=== PATIENT | male | born 1965 | race Caucasian/White ===

== ENCOUNTER 2018-04-25 01:16 | Inpatient (IN) | payer OTHER ==
[~2018-04-25] VITALS: Ht 175.3 cm; Wt 99.0 kg
--- NOTE | ~2018-04-25 | HC ---
[facility] [place] [address] CONSULTATION Name: VIRGINIE SALAS Room #: 218-P [facility] IN M.R.#: [id number] Admission: 04/25/18 Attend Phys: Juan Fernandez MD Discharge: Date of : 65 Report #: [id number] THIS REPORT FOR: //name// CC: FAM unknown Juan Fernandez DATE OF SERVICE: 04/25/2018 NEPHROLOGY CONSULTATION REASON FOR CONSULTATION: Elevated creatinine. 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 The patient developed shortness of air, with some wheezing, presented to [facility] and was found to have a creatinine of 3.8, BUN 53 and transferred here. As far as we know, the patient is unaware of any prior renal issues. PAST MEDICAL HISTORY: He had one bout of a single kidney stone, which was retrieved by basket also about 20-25 years ago. He has also had prior history of pancreatitis also 20-25 years ago. FAMILY HISTORY: He is adopted. SOCIAL HISTORY: He does use tobacco in an oral form. No smoking. Occasional alcoholic drink, may be once a week. REVIEW OF SYSTEMS: GENERAL: Aside from his shortness of breath this morning, he has been feeling reasonably well. He has noted some swelling in his legs. EYES: His vision has been a little compromised. He has had the retinopathy and has been getting treatment for that for some time. ENT: Hearing okay, swallows okay. No mouth sores. ENDOCRINE: Positive for the diabetes. RESPIRATORY: Brief episode this morning as mentioned, otherwise no problems. CARDIAC: No chest pain, angina, palpitations or arrhythmias. GASTROINTESTINAL: Occasional problems with both constipation and diarrhea. GENITOURINARY: Good urinary stream without dysuria. NEUROLOGIC: He has got a little bit of numbness in his feet. No seizure or stroke. MUSCULOSKELETAL: No arthritis. Does not use nonsteroidals except for very rare occasions. [facility] [address] [place] [address] CONSULTATION Name: VIRGINIE SALAS Room #: 218-P [facility] IN M.R.#: [id number] Admission: 04/25/18 Attend Phys: Juan Fernandez MD Discharge: Date of : 65 Report #: [id number] HOME MEDICATIONS: Include atorvastatin 40 mg daily, iron, glucosamine, Lantus insulin, metformin 1000 mg daily and combination olmesartan and hydrochlorothiazide 40/25 once daily. PHYSICAL EXAMINATION: GENERAL: This is a reasonably well-appearing, lucid, calm gentleman, in no distress. SKIN: Unremarkable. SKELETAL: Well-developed, well-nourished, missing the 2 toes on his right foot. HEENT: Extraocular movements are full. Vision intact. No scleral icterus. Hearing intact. Mucous membranes are moist. Tongue and buccal mucosa benign. NECK: Supple, no carotid bruits are heard. There is no lymphadenopathy. CHEST: Clear to auscultation. HEART: Regular. ABDOMEN: Soft and nontender. EXTREMITIES: Show 1+ ankle edema. NEUROLOGIC: Grossly intact. LABORATORY DATA: No urinalysis. No albumin. Sodium 142, potassium 4, chloride 110, bicarbonate 22, creatinine 3.8, BUN 53, calcium 8.2. No phosphorus. CPK 658. Troponin 0.1. ASSESSMENT AND PLAN: 1. Renal insufficiency. The patient has renal insufficiency. He also has a history of longstanding diabetes, hypertension with triopathy. I suspect for the most part this is all chronic, although I am surprised that his primary physician has not talked to him about renal disease in the past. A renal sonogram is also completely unremarkable. We will get urine protein studies, paraprotein studies, urinalysis to see if those show us anything at this point. He certainly is not volume depleted. His blood pressure is not low. I really see no reason for giving him IV fluids. His iron is on the low side and he is anemic and that is also an issue. Certainly, stool cards would be appropriate here. We will complete the workup, especially with attention to whether this seems to be more acute or chronic and go from there in terms of followup. By: 1119 0027 Cole Saul MD /nt
--- NOTE | ~2018-04-25 | 2DMMODE ---
[facility] [address] [place] [address] 2 D/M-MODE ECHOCARDIOGRAM Name: VIRGINIE SALAS Room #: 218-P ADM IN .R.#: [id number] Admission: 04/25/18 Attend Phys: Juan Fernandez, Discharge: Date of : 65 Date of Service: 04/25/18 0935 Report #: [id number] THIS REPORT FOR: //name// APPROVED REPORT Study performed: 04/25/2018 08:35:35 EXAM: Comprehensive 2D, Doppler, and color-flow Echocardiogram Patient Location: Echo lab Room #: 218 Status: routine BSA: 2.12 HR: 96 bpm BP: 179/93 mmHg Rhythm: NSR Other Information Study Quality: Adequate Indications Short of breath, question CHF, mildly elevated troponin. Hx: HTN, HLP, DM Echo Enhancing Agent Indication: Endocardial border delineation Agent(s) / Amount(s) Used: Optison 3 cc 2D Dimensions RVDd: 32.59 mm IVSd: 15.39 (7-11mm) LVOT Diam: 24.96 (18-24mm) LVDd: 49.96 mm PWd: 12.94 (7-11mm) Ascending Ao: 37.31 (22-36mm) LVDs: 37.32 (25-40mm) Aortic Root: 38.58 mm Volumes Left Atrial Volume (Systole) Single Plane 4CH: 85.35 mL Single Plane 2CH: 74.95 mL LA ESV Index: 41.00 mL/m2 Aortic Valve AoV Peak Suman.: 1.58 m/s AO Peak Gr.: 9.95 mmHg LVOT Max P.07 mmHg LVOT Max V: 0.88 m/s FELIPE Vmax: 2.72 cm2 [facility] [place] [address] [place] [address] 2 D/M-MODE ECHOCARDIOGRAM Name: VIRGINIE SALAS Room #: 218-P [facility] IN ..#: [id number] Admission: 04/25/18 Attend Phys: Juan Fernandez, Discharge: Date of : 65 Date of Service: 04/25/18 0935 Report #: [id number] Mitral Valve E/A Ratio: 0.9 MV Decel. Time: 136.82 ms MV E Max Suman.: 1.05 m/s MV A Suman.: 1.17 m/s MV PHT: 39.68 ms IVRT: 85.35 ms Pulmonary Valve PV Peak Suman.: 1.04 m/s PV Peak Gr.: 4.31 mmHg Pulmonary Vein P Vein S: 0.56 m/s P Vein A: 0.34 m/s P Vein D: 0.35 m/s P Vein A Dur.: 90.0 msec P Vein S/D Ratio: 1.60 Tricuspid Valve RAP Estimate: 5.00 mmHg Left Ventricle The left ventricle is normal size. Paradoxical septal motion. Mild to moderate concentric left ventricular hypertrophy. The left ventricular systolic function is low normal. LVEF is 50%. Mild diastolic dysfunction is present (impaired relaxation pattern). Right Ventricle The right ventricle is normal size. The right ventricular systolic function is normal. Atria Left atrium is mildly dilated. The right atrium size is normal. Aortic Valve Aortic valve is thickened and calcified but has adequate excursion. Trace aortic regurgitation. Mitral Valve Mitral valve leaflets are mildly thickened. Mild mitral annular calcification. Mild mitral regurgitation. Tricuspid Valve The tricuspid valve is normal in structure. Trace tricuspid regurgitation. Unable to assess PA pressure. [facility] [address] [place] [address] 2 D/M-MODE ECHOCARDIOGRAM Name: VIRGINIE SALAS Room #: 218-P [facility] IN .R.#: [id number] Admission: 04/25/18 Attend Phys: Juan Fernandez, Discharge: Date of : 65 Date of Service: 04/25/18 0935 Report #: [id number] Pulmonic Valve Pulmonic valve is not well visualized. Trace pulmonic regurgitation. Great Vessels Aortic root is mildly dilated. The ascending aorta is normal in size. IVC is normal in size and collapses >50% with inspiration. Pericardium Small pericardial effusion noted. <Conclusion> The left ventricle is normal size. LVEF is 50%. Left atrium is mildly dilated. Aortic valve is thickened and calcified but has adequate excursion. Trace aortic regurgitation. Mitral valve leaflets are mildly thickened. Mild mitral annular calcification. Mild mitral regurgitation. The tricuspid valve is normal in structure. Trace tricuspid regurgitation. Unable to assess PA pressure. Pulmonic valve is not well visualized. Trace pulmonic regurgitation. Aortic root is mildly dilated. Small pericardial effusion noted. <ELECTRONICALLY SIGNED> By: Mendel Song MD 04/25/18934 4 4 Mendel Song MD /INF
--- NOTE | ~2018-04-25 | EKG ---
[address] [facility] [place] [address] ELECTROCARDIOGRAM REPORT Name: JOSUEVIRGINIE Room #: 218-P ADM IN M.R.#: [id number] Admission: 04/25/18 Attend Phys: Juan Fernandez MD Discharge: Date of : 65 Report #: [id number] THIS REPORT FOR: //name// [facility] Test Date: 2018-04-25 Test Time: 07:18:38 Pat Name: VIRGINIE SALAS Department: Room: 218 P Gender: M Processor Helper: GIGI : 1965 Requested By: Shasha Badillo Order Number: [id number] MD: Edgar Javier Measurements Intervals [place] Rate: 93 P: 55 NH: 149 QRS: 14 QRSD: 133 T: 157 QT: 412 QTc: 513 Interpretive Statements Sinus rhythm Left bundle branch block Baseline wander in lead(s) V1,V2,V3 No previous ECG available for comparison Electronically Signed On 04-25-2018 8:39:14 CDT by Edgar Javier [email or web address] <ELECTRONICALLY SIGNED> By: Edgar Javier MD, [facility] 04/25/18 0839 7 7 Edgar Javier MD, [facility] /EPI
[2018-04-25 02:48] VITALS: BP 137/79
[2018-04-25] MEDS ORDERED: METFORMIN HCL500 MG PO (02:53)
[2018-04-25] MEDS ORDERED: OLMESARTAN-HCT1 EAC2 PO (02:56)
[2018-04-25] MEDS ORDERED: ATORVASTATIN CA40 MG PO (02:57)
[2018-04-25] MEDS ORDERED: LANTUS SUBQ (02:59)
[2018-04-25] MEDS ORDERED: GLUCOSAMINE HC500 MG PO (03:01)
[2018-04-25] MEDS ORDERED: UNICOMPLEX M TA1 TA1 PO (03:02)
[2018-04-25] MEDS ORDERED: IRON325 PO (03:03)
[2018-04-25 05:33] LABS: HEMATOCRIT 22.4 % (42.0-52.0); HEMOGLOBIN 7.6 gm/dL (14.0-18.0); MCH 28.3 pg (26.0-34.0); MCHC 34.1 g/dL (28.0-37.0); RBC 2.7 mil/uL (4.50-6.00); RDW 14.6 % (10.5-14.5); WBC 7.7 thou/uL (4.0-11.0)
[2018-04-25 05:53] LABS: CALCIUM 8.2 mg/dL (8.5-10.1); CREATININE 3.8 mg/dL (0.7-1.3); TROPONIN-I 0.1 ng/mL (<0.06)
[2018-04-25 05:54] LABS: % SATURATION 14 % (20-39); IRON 24 ug/dL (65-175); TIBC 168 ug/dL (250-450)
[2018-04-25 06:31] LABS: CHOLESTEROL 132 mg/dL (<200); HDL CHOLESTEROL 42 mg/dL (>40); LDL CHOLESTEROL 58 mg/dL (<100); TC:HDL 3.1 Ratio (Not establshd); TRIGLYCERIDE 163 mg/dL (<150); VLDL 33 mg/dL (<40)
[2018-04-25 07:27] LABS: FOLIC ACID 26.8 ng/mL (8.6-58.9)
[2018-04-25 07:36] VITALS: BP 179/93
[2018-04-25 12:43] VITALS: BP 179/98
[2018-04-25 15:41] LABS: URINE BILIRUBIN NEGATIVE (Negative); URINE BLOOD TRACE (Negative); URINE CLARITY CLEAR; URINE COLOR YELLOW; URINE GLUCOSE-RANDOM* NEGATIVE (Negative); URINE KETONES NEGATIVE (Negative); URINE LEUKOCYTES NEGATIVE (Negative); URINE NITRITE NEGATIVE (Negative); URINE PROTEIN (DIPSTICK) 2+ (Negative); URINE UROBILINOGEN 0.2 E.U./dl (0.2-1.0)
[2018-04-25 15:48] LABS: PROT/CREAT RATIO 3.7; URINE CREATININE-RANDOM* 48.5 mg/dL; URINE PROTEIN-RANDOM* 179.4 mg/dL (<11.9)
[2018-04-25 15:56] LABS: BACTERIA None Seen /HPF (None Seen); CRYSTALS None Seen /LPF (None Seen); HYALINE CASTS 0-3 Few /LPF (None Seen); SQUAMOUS 0-3 Few /LPF (0-3); URINE RBC 0-2 Rare /HPF (0-2); URINE WBC 0-5 Rare /HPF (0-5)
[2018-04-25 16:30] VITALS: BP 157/91
[2018-04-25 20:20] VITALS: BP 166/102
[2018-04-25 22:06] LABS: GLYCOHEMOGLOBIN (HGB A1C) 5.9 % (4.8-5.6)
[2018-04-26 04:34] LABS: HEMATOCRIT 24.2 % (42.0-52.0); HEMOGLOBIN 8.3 gm/dL (14.0-18.0); MCH 28.7 pg (26.0-34.0); MCHC 34.2 g/dL (28.0-37.0); MCV 83.9 fL (80.0-100.0); RBC 2.89 mil/uL (4.50-6.00); RDW 14.9 % (10.5-14.5); WBC 8.1 thou/uL (4.0-11.0)
[2018-04-26 04:47] VITALS: BP 185/105
[2018-04-26 05:00] LABS: CALCIUM 8.4 mg/dL (8.5-10.1); CREATININE 3.5 mg/dL (0.7-1.3); POTASSIUM 4.8 mmol/L (3.5-5.1)
[2018-04-26 05:18] LABS: PHOSPHORUS 4.4 mg/dL (2.5-4.9)
[2018-04-26 08:04] VITALS: BP 184/103
[2018-04-26 11:02] VITALS: BP 188/111
[2018-04-26 15:49] VITALS: BP 187/116
[2018-04-26 19:53] VITALS: BP 162/84
[2018-04-27 00:10] VITALS: BP 140/81
[2018-04-27 04:24] LABS: CALCIUM 8.5 mg/dL (8.5-10.1); CREATININE 3.5 mg/dL (0.7-1.3); PHOSPHORUS 4.9 mg/dL (2.5-4.9); POTASSIUM 5.1 mmol/L (3.5-5.1)
[2018-04-27 04:29] VITALS: BP 138/80
[2018-04-27 08:44] VITALS: BP 151/81
[2018-04-27] MEDS ORDERED: COZAAR100 MG PO (10:49)
[2018-04-27] MEDS ORDERED: LOPRESSOR50 PO (10:49)
[2018-04-27] MEDS ORDERED: NIFEDIPINE ER30 M1 PO (10:49)
[2018-04-27 11:43] VITALS: BP 151/81
[2018-04-28 14:10] LABS: KAPPA FREE LIGHT CHAINS 4.6 mg/L (3.3-19.4); KAPPA/LAMBDA RATIO 0.46 (0.26-1.65)
[2018-04-29 17:12] LABS: M-SPIKE Not Observed g/dL (Not Observed)
== END 2018-04-27 12:00 | disposition home or self-care (01) | DRG 682 ==
LOC: 2N 01:16
PROVIDERS: Hospitalist; Internal Medicine Nephrology; Nurse Practitioner Acute Care
DX: I12.9 Hypertensive chronic kidney disease with stage 1 through stage 4 chronic kidney disease, or unspecified chronic kidney disease (principal); N17.0 Acute kidney failure with tubular necrosis; E11.319 Type 2 diabetes mellitus with unspecified diabetic retinopathy without macular edema; E11.42 Type 2 diabetes mellitus with diabetic polyneuropathy; E78.5 Hyperlipidemia, unspecified; F17.220 Nicotine dependence, chewing tobacco, uncomplicated; D64.9 Anemia, unspecified; E11.22 Type 2 diabetes mellitus with diabetic chronic kidney disease; N18.9 Chronic kidney disease, unspecified; D50.0 Iron deficiency anemia secondary to blood loss (chronic); Z79.899 Other long term (current) drug therapy; Z89.429 Acquired absence of other toe(s), unspecified side
CPT/HCPCS: 10081

== ENCOUNTER 2018-05-16 17:22 | Emergency (ER) | payer OTHER ==
[~2018-05-16] VITALS: Ht 175.3 cm; Wt 97.5 kg
--- NOTE | ~2018-05-16 | EKG ---
[place] [address] [place] [address] ELECTROCARDIOGRAM REPORT Name: MARCOVIRGINIE KERR [id number] Admission: 05/16/18 Attend Phys: Discharge: 05/16/18 Date of : 65 Report #: [id number] THIS REPORT FOR: //name// [facility] ED Test Date: 2018-05-16 Test Time: 17:45:52 Pat Name: VIRGINIE SALAS Department: Room: Gender: Mobile Ui Designer: [facility] : 1965 Requested By: Lotus Hylton Order Number: [id number] MD: Edgar Javier Measurements Intervals [place] Rate: 88 P: 57 MO: 153 QRS: -1 QRSD: 131 T: 68 QT: 407 QTc: 493 Interpretive Statements Sinus rhythm Left bundle branch block Compared to ECG 04/25/2018 07:18:38 No significant changes Electronically Signed On 05-17-2018 10:43:13 COORDINATE MEASURING MACHINE PROGRAMMER by Edgar Javier [email or web address] <ELECTRONICALLY SIGNED> By: Edgar Javier MD, [facility] 05/17/18 1043 1745 1745 Edgar Javier MD, FAC /EPI
[~2018-05-16 17:22] MED LIST: ATORVASTATIN CA40 MG PO; COZAAR100 MG PO; GLUCOSAMINE HC500 MG PO; IRON325 PO; LANTUS SUBQ; LOPRESSOR50 PO; METFORMIN HCL500 MG PO; NIFEDIPINE ER30 M1 PO; OLMESARTAN-HCT1 EAC2 PO; UNICOMPLEX M TA1 TA1 PO
[2018-05-16 18:21] LABS: ABSOLUTE NEUTROPHILS 6.3 thou/uL (1.4-8.2); BASOPHILS 0.5 % (0.0-2.0); EOSINOPHILS 2.5 % (0.0-3.0); HEMATOCRIT 24.6 % (42.0-52.0); HEMOGLOBIN 8.6 gm/dL (14.0-18.0); LYMPHOCYTES 12.8 % (24.0-44.0); MCH 29.4 pg (26.0-34.0); MCHC 34.8 g/dL (28.0-37.0); MCV 84.3 fL (80.0-100.0); MONOCYTES 6.7 % (1.0-8.0); PLATELET COUNT 135 thou/uL (150-400); POLYS 77.5 % (36.0-66.0); RBC 2.92 mil/uL (4.50-6.00); RDW 15.6 % (10.5-14.5); WBC 8.2 thou/uL (4.0-11.0)
[2018-05-16 18:24] LABS: URINE BILIRUBIN NEGATIVE (Negative); URINE BLOOD 2+ (Negative); URINE CLARITY CLEAR; URINE COLOR YELLOW; URINE GLUCOSE-RANDOM* NEGATIVE (Negative); URINE KETONES NEGATIVE (Negative); URINE LEUKOCYTES-REFLEX NEGATIVE (Negative); URINE NITRITE-REFLEX NEGATIVE (Negative); URINE PROTEIN (DIPSTICK) 2+ (Negative); URINE SPECIFIC GRAVITY >= 1.030 (1.005-1.035); URINE UROBILINOGEN 0.2 E.U./dl (0.2-1.0)
[2018-05-16 18:32] LABS: CALCIUM 8.4 mg/dL (8.5-10.1); CREATININE 3.6 mg/dL (0.7-1.3); POTASSIUM 5.1 mmol/L (3.5-5.1)
[2018-05-16 18:35] LABS: BACTERIA-REFLEX 1-9 Few /HPF (None Seen); CASTS None Seen /LPF (None Seen); CRYSTALS None Seen /LPF (None Seen); SQUAMOUS None Seen /LPF (0-3); URINE RBC 0-2 Rare /HPF (0-2); URINE WBC-REFLEX None Seen /HPF (0-5)
[2018-05-16 18:38] LABS: ALBUMIN 2.5 g/dL (3.4-5.0); TOTAL BILIRUBIN 0.2 mg/dL (<0.1-1.0); TOTAL PROTEIN 6.9 g/dL (6.4-8.2)
[2018-05-16] MEDS ORDERED: DEMADEX20 MG PO (19:51)
[2018-05-16 20:31] VITALS: BP 177/83
== END 2018-05-16 20:32 | disposition home or self-care (01) ==
LOC: ER 17:22
PROVIDERS: Nurse Practitioner Family
DX: R60.0 Localized edema (principal); N19 Unspecified kidney failure; E11.9 Type 2 diabetes mellitus without complications; I10 Essential (primary) hypertension; E78.5 Hyperlipidemia, unspecified; D64.9 Anemia, unspecified; J45.909 Unspecified asthma, uncomplicated; I25.2 Old myocardial infarction; Z89.429 Acquired absence of other toe(s), unspecified side; Z79.4 Long term (current) use of insulin; Z72.0 Tobacco use